=== PATIENT | female | born 1950 | race Caucasian/White ===

== ENCOUNTER 2018-03-01 11:52 | Emergency (ER) | payer MEDICARE ==
[~2018-03-01] VITALS: Ht 157.5 cm; Wt 70.0 kg
[~2018-03-01 11:52] MED LIST: BIOT10TA PO; DENO60P SQ; REDCAP2 PO; VITA10002 PO
[2018-03-01 11:59] VITALS: BP 163/82; PULSE 71; RESP 16; TEMP 98.1; O2SAT 99
[2018-03-01 13:49] VITALS: BP 157/90; PULSE 80; RESP 18; O2SAT 98
--- NOTE | 2018-03-01 14:16 | PD ---
HPI Chief Complaint: Dizziness Time Seen by Provider: 13:48 Travel History International Travel<30 days: No Contact w/Intl Traveler<30days: No Traveled to known affect area: No History of Present Illness HPI This 67-year-old female says she was at work when she started to feel like she was going to pass out. She says she started seeing some strange things that it seemed like they were [place]. This lasted for a few minutes and then resolved. She has had a recent eye examination which was fine. She has never passed out. She did not have any chest pain or palpitations. She feels fine now. She was at work and said there is no unusual excitement at this time. She did not actually pass out there were no tonic-clonic movements there was no tongue biting. She had surgery as a child for a hole in her heart [facility] Past Medical History Arthritis: Yes Cancer: No Cardiovascular Problems: No Diminished Hearing: No Endocrine: No Genitourinary: No Immune Disorder: No Musculoskeletal: Yes Neurologic: No Psychiatric: No Reproductive: No Respiratory: No Influenza Vaccination: Yes Past Surgical History Abdominal Surgery: No Cardiac Surgery: Yes (OPEN HEART SURGERY) Ear Surgery: No Endocrine Surgery: No Eye Surgery: No Genitourinary Surgery: No Gynecologic Surgery: Yes (HYSTERECTOMY 1999) Hysterectomy: Yes (1999) Oral Surgery: No Thoracic Surgery: No Social History Alcohol Use: No Tobacco Use: No Substance Use: No Allergies-Medications (Allergen,Severity, Reaction): Coded Allergies: Penicillins (Verified Allergy, Intermediate, PT DENIES, 03/01/18) erythromycin base (Verified Allergy, Intermediate, RASH, 03/01/18) Reported Meds & Prescriptions Reported Meds & Active Scripts Active Reported Prolia Inj (Denosumab) 60 Mg/Ml Inj 60 Mg SQ Q180D Biotin 10 Mg Tab 10 Mg PO DAILY Red Yeast Rice (Red Yeast Rice Extract) 600 Mg Cap 1 Cap PO DAILY Vitamin B-12 (Cyanocobalamin) 1,000 Mcg Tab 1,000 Mcg PO DAILY Review of Systems General / Constitutional: No: Fever, Chills Eyes: Positive: Visual changes HENT: Positive: Lightheadedness, No: Headaches, Vertigo Cardiovascular: No: Chest Pain or Discomfort, Palpitations Respiratory: No: Cough, Shortness of Breath Gastrointestinal: No: Nausea, Vomiting Genitourinary: No: Urgency, Frequency Musculoskeletal: No: Myalgias Skin: No Rash, No Itching Neurologic: No: Weakness Endocrine: No: Heat Intolerance, Cold Intolerance Hematologic/Lymphatic: No: Easy Bruising Physical Exam Narrative GENERAL: Well-developed female SKIN: Focused skin assessment warm/dry. HEAD: Atraumatic. Normocephalic. EYES: Pupils equal and round. No scleral icterus. No injection or drainage. ENT: No nasal bleeding or discharge. Mucous membranes pink and moist. NECK: Trachea midline. No JVD. CARDIOVASCULAR: Regular rate and rhythm. No murmur appreciated. RESPIRATORY: No accessory muscle use. Clear to auscultation. Breath sounds equal bilaterally. GASTROINTESTINAL: Abdomen soft, non-tender, nondistended. Hepatic and splenic margins not palpable. MUSCULOSKELETAL: No obvious deformities. No clubbing. No cyanosis. No edema. NEUROLOGICAL: Awake and alert. No obvious cranial nerve deficits. Motor grossly within normal limits. Normal speech. PSYCHIATRIC: Appropriate mood and affect; insight and judgment normal. Data Data Last Documented VS Vital Signs Date Time Temp Pulse Resp B/P (MAP) Pulse Ox O2 Delivery O2 Flow Rate FiO2 03/01/18 13:49 77 Room Air 03/01/18 13:49 18 157/90 (112) 98 03/01/18 11:59 98.1 Orders Orders Electrocardiogram (03/01/18 14:04) Complete Blood Count With Diff (03/01/18 14:04) Basic Metabolic Panel (Bmp) (03/01/18 14:04) Troponin I (03/01/18 14:04) Labs Laboratory Tests Test 03/01/18 14:30 White Blood Count 6.1 TH/MM3 Red Blood Count 5.15 MIL/MM3 Hemoglobin 15.8 GM/DL Hematocrit 45.6 % Mean Corpuscular Volume 88.6 FL Mean Corpuscular Hemoglobin 30.7 PG Mean Corpuscular Hemoglobin Concent 34.6 % Red Cell Distribution Width 13.3 % Platelet Count 239 TH/MM3 Mean Platelet Volume 8.5 FL Neutrophils (%) (Auto) 59.0 % Lymphocytes (%) (Auto) 32.4 % Monocytes (%) (Auto) 6.0 % Eosinophils (%) (Auto) 1.9 % Basophils (%) (Auto) 0.7 % Neutrophils # (Auto) 3.6 TH/MM3 Lymphocytes # (Auto) 2.0 TH/MM3 Monocytes # (Auto) 0.4 TH/MM3 Eosinophils # (Auto) 0.1 TH/MM3 Basophils # (Auto) 0.0 TH/MM3 CBC Comment DIFF FINAL Differential Comment Blood Urea Nitrogen 10 MG/DL Creatinine 0.68 MG/DL Random Glucose 96 MG/DL Calcium Level 9.7 MG/DL Sodium Level 140 MEQ/L Potassium Level 3.7 MEQ/L Chloride Level 106 MEQ/L Carbon Dioxide Level 26.6 MEQ/L Anion Gap 7 MEQ/L Estimat Glomerular Filtration Rate 87 ML/MIN Troponin I LESS THAN 0.02 NG/ML MDM Medical Decision Making Medical Screen Exam Complete: Yes Emergency Medical Condition: Yes Medical Record Reviewed: Yes Differential Diagnosis Differential includes dysrhythmia, vasovagal episode Narrative Course Lab work has been stable in the emergency department. EKG shows normal sinus rhythm. Patient is stable for discharge Diagnosis Primary Impression: Near syncope Disposition: 01 DISCHARGE HOME Condition: Stable Magno Gómez MD March 01, 2018 14:16
[2018-03-01 14:35] LABS: AUTOMATED NEUTROPHIL # 3.6 TH/MM3 (1.8-7.7); BASOPHIL % 0.7 % (0.0-2.0); EOSINOPHIL # 0.1 TH/MM3 (0-0.4); EOSINOPHIL % 1.9 % (0.0-4.0); HEMATOCRIT 45.6 % (35.0-46.0); HEMOGLOBIN 15.8 GM/DL (11.6-15.3); LYMPH % 32.4 % (9.0-44.0); MEAN CELL VOLUME 88.6 FL (80.0-100.0); MEAN CORPUSCULAR HEMOGLOBIN 30.7 PG (27.0-34.0); MEAN CORPUSCULAR HGB CONC 34.6 % (32.0-36.0); MEAN PLATELET VOLUME 8.5 FL (7.0-11.0); MONOCYTE # 0.4 TH/MM3 (0-0.9); PLATELET COUNT 239 TH/MM3 (150-450); RED BLOOD COUNT 5.15 MIL/MM3 (4.00-5.30); RED CELL DISTRIBUTION WIDTH 13.3 % (11.6-17.2); WHITE BLOOD COUNT 6.1 TH/MM3 (4.0-11.0)
[2018-03-01 14:43] LABS: CHLORIDE 106 MEQ/L (98-107); SODIUM (NA) 140 MEQ/L (136-145)
[2018-03-01 14:46] LABS: BICARBONATE 26.6 MEQ/L (21.0-32.0); CALCIUM 9.7 MG/DL (8.5-10.1); GLUCOSE,RANDOM 96 MG/DL (74-106)
[2018-03-01 14:47] LABS: BLOOD UREA NITROGEN 10 MG/DL (7-18)
[2018-03-01 14:50] LABS: CREATININE 0.68 MG/DL (0.50-1.00); GLOMERULAR FILTRATION RATE 87 ML/MIN (>89)
[2018-03-01 14:54] LABS: TROPONIN I LESS THAN 0.02 NG/ML (0.02-0.05)
[2018-03-01 15:58] VITALS: BP 160/87
--- NOTE | 2018-03-03 08:28 | EKG ---
Date Performed: 03/01/2018 Time Performed: 14:13:59 PTAGE: 67 years EKG: Sinus rhythm NORMAL ECG NO PREVIOUS TRACING DOCTOR: Clayton Gonzales Interpretating Date/Time 03/03/2018 08:18:14
== END 2018-03-01 16:02 | disposition home or self-care (01) ==
LOC: PHED 11:52
DX: R55 Syncope and collapse (principal); Z88.0 Allergy status to penicillin
CPT/HCPCS: 80048; 84484; 85025; 93005; 99284